=== PATIENT | female | born 1980 | race Caucasian/White ===

== ENCOUNTER 2024-05-03 07:05 | Day surgery (SDC) | payer BC ==
[~2024-05-03 07:05] MED LIST: Sodium Chloride 0.9% 10 ML Syringe FLUSH PRN; Sodium Chloride 0.9% 10 ML Syringe FLUSH SCH
[2024-05-03] MEDS: Lactated Ringers 1,000 ML IV SCH (07:20)
[2024-05-03] MEDS ORDERED: propofoL 500 MG/50 ML 50 ML ONE (08:05)
[2024-05-03] MEDS ORDERED: Lidocaine 2% 5 ML SDV ONE (08:05)
[2024-05-03] MEDS ORDERED: fentaNYL 100 MCG/2 ML SDV ONE (08:34)
[2024-05-03 10:13] VITALS: BP 106/73; PULSE 55
== END 2024-05-03 10:05 | disposition home or self-care (01) ==
LOC: JD.SDS 07:05
PROVIDERS: ATTEND Surgery
DX: Z12.11 Encounter for screening for malignant neoplasm of colon (principal); D12.8 Benign neoplasm of rectum
CPT/HCPCS: 45385; J2003; J2704; J3010; J7120; 00811